=== PATIENT | male | born 1965 | race Caucasian/White ===

== ENCOUNTER 2019-08-31 01:10 | Emergency (ER) | payer BC, SELFPAY ==
[2019-08-31 01:09] VITALS: BP 139/103; PULSE 82; RESP 16; TEMP 36.7; O2SAT 96
--- NOTE | 2019-08-31 01:22 | ED.ABDPAIN ---
HPI - Abdominal Pain General Chief Complaint: Skin/Abscess/Foreign Body Stated Complaint: food bolus Time Seen by Provider: 08/31/19 01:17 History of Present Illness HPI narrative: History limited due to intoxication. He reports the he was eating beef earlier this evening when he felt it get stuck in his throat. He has not been able to eat or drink anything since. He does admit to drinking several alcoholic beverages prior to this. He has had this happen in the past. He is not sure how that was resolved. Related Data Allergies Allergy/AdvReac Type Severity Reaction Status Date / Time No Known Allergies Allergy Verified 08/31/19 01:43 Review of Systems Review of Systems: All systems reviewed & are unremarkable except as noted in HPI and below Constitutional: Constitutional: Denies fever(s) ENT: Reports dysphagia Respiratory: Respiratory: Reports dyspnea Gastrointestinal: Gastrointestinal: Denies abdominal pain, Denies nausea and Denies vomiting Exam Const: General: no acute distress and alert Orientation/consciousness: patient oriented x3 HENMT: Head: normal to inspection Neck: Neck: normal visual inspection and no lymphadenopathy Chest: Chest palpation & inspection: no tenderness Resp: Effort & Inspection: normal respiratory effort Auscultation: clear to auscultation bilaterally, no rales, no rhonchi and no wheezes Cardio: Jugular venous distension: no JVD Rate: regular rate Rhythm: regular rhythm Heart sounds: no murmurs GI: Inspection: non-distended GI Palp: Yes Soft to palpation and No Tenderness to palpation present (GI) Skin: General skin exam: normal color Neuro: General: patient oriented x3 and moves all extremities Speech: Abnormal speech present slurred Extrem: General: no edema Psych: Appearance: well kempt Affect: normal affect Course Course Emergency Course: I discussed the case with Dr. Shankar and planned to admit him for observation and endoscopy in the morning. Shortly afterwards the patient said that he felt it pass. He was then able to keep down fluids without difficulty and asked to be discharged. Vital Signs Vital signs: Vital Signs Temperature 36.7 C 08/31/19 01:09 Pulse Rate 82 08/31/19 01:09 Respiratory Rate 16 08/31/19 01:09 Blood Pressure 139/103 H 08/31/19 01:09 Pulse Oximetry 96 08/31/19 01:09 Temperature 36.4 C L 07/19/20 03:26 Pulse Rate 64 08/31/19 03:26 Respiratory Rate 16 08/31/19 03:26 Blood Pressure 154/96 H 08/31/19 03:26 Pulse Oximetry 97 08/31/19 03:26 MDM - Abdominal Pain Lab Data Result diagrams: 08/31/19 01:50 08/31/19 01:50 Labs: Lab Results 08/31/19 08/31/19 Range/Units 01:50 01:50 WBC 11.8 H (4.5-10.0) K/mm3 RBC 4.62 (4.6-6.20) M/mm3 Hgb 15.2 (14.0-18.0) g/dL Hct 43.7 (42.0-52.0) % MCV 94.6 (80-100) fl MCH 32.9 (26-34) pg MCHC 34.8 (32-36) g/dl RDW 11.9 (11.5-14.5) % Plt Count 258 (150-375) k/mm3 MPV 8.8 (7.4-10.4) fl Immature Gran % (Auto) 0.2 (0-0.5) % Neut % (Auto) 57.8 (45.5-73.1) % Lymph % (Auto) 32.6 (18.3-44.2) % [place] % (Auto) 5.1 (2.6-8.5) % Eos % (Auto) 3.8 (0-4.4) % Baso % (Auto) 0.5 (0.2-1.2) % Lymph # (Auto) 3.84 H (0.9-3.2) K/mm3 [place] # (Auto) 0.6 (0.1-0.6) K/mm3 Eos # (Auto) 0.5 H (0-0.3) K/mm3 Baso # (Auto) 0.1 (0.0-0.1) K/mm3 Abs Immat Gran (auto) 0.02 (0.00-0.031) K/mm3 Absolute Neuts (auto) 6.8 H (1.3-6.7) K/mm3 Absolute Nucleated RBC 0.0 (0.0-0.012) K/mm3 Nucleated RBC % 0.0 (0.0-0.2) % Sodium 134 L (137-145) mmol/L Potassium 4.0 (3.4-5.0) mmol/L Chloride 100 (98-107) mmol/L Carbon Dioxide 22 (22-30) mmol/L BUN 8 L (9-20) mg/dL Creatinine 0.60 L (0.7-1.3) mg/dL Estim Creat Clear Calc 137 ml/min Estimated GFR > 60 (59 - ) Glucose 108 (75-110) mg/dL Calcium 9.2 (8.4-10.2) mg/dL Total Bilirubin 0.2 (0.2-1.3) mg/d
[2019-08-31] MEDS: GLUCAGON FOR INJ 1 MG VIAL IM (01:43)
[2019-08-31] MEDS: SODIUM CHLORIDE 0.9% IV 1,000 ML 999 ML IV CONT (01:43)
[2019-08-31 01:55] LABS: Basophils Absolute Auto 0.1 K/mm3 (0.0-0.1); Basophils Percent Auto 0.5 % (0.2-1.2); Eosinophils Absolute Auto 0.5 K/mm3 (0-0.3); Eosinophils Percent Auto 3.8 % (0-4.4); Hematocrit 43.7 % (42.0-52.0); Hemoglobin 15.2 g/dL (14.0-18.0); Immature Granulocyte Absolute 0.02 K/mm3 (0.00-0.031); Immature Granulocyte Percent A 0.2 % (0-0.5); Lymphocytes Absolute Auto 3.84 K/mm3 (0.9-3.2); Lymphocytes Percent Auto 32.6 % (18.3-44.2); Mean Corpuscular HGB Conc 34.8 g/dl (32-36); Mean Corpuscular Hemoglobin 32.9 pg (26-34); Mean Corpuscular Volume 94.6 fl (80-100); Mean Platelet Volume 8.8 fl (7.4-10.4); Monocytes Absolute Auto 0.6 K/mm3 (0.1-0.6); Monocytes Percent Auto 5.1 % (2.6-8.5); Neutrophils Absolute Auto 6.8 K/mm3 (1.3-6.7); Neutrophils Percent Auto 57.8 % (45.5-73.1); Platelet Count Result 258 k/mm3 (150-375); Red Blood Count 4.62 M/mm3 (4.6-6.20); Red Cell Distribution Width 11.9 % (11.5-14.5); White Blood Count 11.8 K/mm3 (4.5-10.0)
[2019-08-31 02:11] LABS: Alanine Aminotransferase 18 U/L (4-50); Albumin Level 4.3 g/dL (3.5-5.1); Alkaline Phosphatase 85 U/L (38-126); Aspartate Amino Transferase 26 U/L (17-59); Bilirubin,Total 0.2 mg/dL (0.2-1.3); Blood Urea Nitrogen 8 mg/dL (9-20); Calcium 9.2 mg/dL (8.4-10.2); Carbon Dioxide 22 mmol/L (22-30); Chloride 100 mmol/L (98-107); Estimated CRCL calculation 137 ml/min; Estimated Glomerular Filt Rate > 60; Glucose 108 mg/dL (75-110); Lipase 168 U/L (23-300); Sodium 134 mmol/L (137-145)
[2019-08-31 03:26] VITALS: BP 154/96; PULSE 64; RESP 16; TEMP 36.4; O2SAT 97
== END 2019-08-31 03:27 | disposition home or self-care (01) ==
PROVIDERS: Emergency Provider Emergency Medicine
DX: T18.128A Food in esophagus causing other injury, initial encounter (principal)
CPT/HCPCS: 36415; 80053; 83690; 85025; 96360; 96372; 99283; J1610; J7030

== ENCOUNTER 2019-10-16 18:11 | Emergency (ER) | payer BC, SELFPAY ==
--- NOTE | 2019-10-16 18:13 | ED.BACK ---
HPI - Back Pain/Injury General Chief Complaint: Back Pain/Injury Stated Complaint: back pain Time Seen by Provider: 10/16/19 19:01 Source: patient and RN notes reviewed Mode of arrival: ambulatory Limitations: no limitations History of Present Illness HPI Narrative: 54 old male presents with concern for flareup of chronic back pain. Reports bilateral paraspinal spasms with sciatica down the right leg. Reports he has been taking ibuprofen, Tylenol cyclobenzaprine with relief, however has run out. He reports he does not currently have a primary care provider. Reports he had to miss work today. He denies loss of bowel or bladder function, denies perianal anesthesia, denies weakness, fever, abdominal pain. MD elicited complaint: back pain Related Data Home Medications Medication Instructions Recorded Confirmed acetaminophen [Tylenol Extra 1,000 mg PO QID 10/16/19 10/16/19 Strength] cyclobenzaprine 10 mg PO HS 10/16/19 10/16/19 ibuprofen 800 mg PO TID 10/16/19 10/16/19 Allergies Allergy/AdvReac Type Severity Reaction Status Date / Time No Known Allergies Allergy Verified 10/16/19 18:40 Review of Systems Review of Systems: Narrative: CONSTITUTIONAL: Denies malaise, chills, sweats, or fever. CARDIOVASCULAR: Denies chest pain, palpitations, or edema. RESPIRATORY: Denies cough or dyspnea. GASTROINTESTINAL: Denies abdominal pain, nausea, vomiting, diarrhea, bloody, or mucous stools. GENITOURINARY: Denies dysuria or hematuria. SKIN: Denies rash or itching. MUSCULOSKELETAL: Reports bilateral paraspinal spasm, sciatica. Joint pain, or myalgia. NEUROLOGIC: Denies numbness, weakness, or headache. PSYCHIATRIC: Denies anxiety or depression. All systems reviewed & are unremarkable except as noted in HPI and below PMFSH Social History Social History Gender identity (if verbalized by the patient): Male Comments At time of signature, agree with nursing past medical, surgical, social and family history. There is no relevant family history pertinent to the presenting complaint Exam Narrative: Exam Narrative: GENERAL: Well-appearing, well-nourished, and in no acute distress. HEAD: Normocephalic, atraumatic. EYES: PERRLA and EOMI. NECK: Supple. No lymphadenopathy. CHEST: Clear to auscultation. No respiratory distress. HEART: Regular rate and rhythm. Distal pulses palpable and equal, cap refill <3 seconds ABDOMEN: Soft, nontender, nondistended, normal active bowel sounds, no palpable or pulsatile masses. No CVA tenderness MUSCULOSKELETAL: Normal range of motion and strength in all extremities; 5/5 strength with hip flexion and extension, dorsiflexion and extension, knee flexion and extension, plantar flexion and extension. Normal sensation in dermatomal distributions with sensitivity to light touch and pain. No midline back tenderness to palpation. No paraspinal tenderness. Transfers from lying to sitting to standing. SKIN: Warm, dry, no rash. No ecchymosis, erythema, open wounds to back. NEURO: No focal deficits. Alert and oriented x3. Reflexes intact. Normal gait. PSYCH: Normal mood and affect Course Course Emergency Course: Patient is aware of diagnosis, understands and agrees to treatment plan. Anticipatory guidance given. Patient agrees to follow-up as directed and is aware of reasons to seek care at the emergency department. Portions of this record may have been created with voice recognition software Vital Signs Vital signs: Vital Signs Temperature 99.0 F 10/16/19 18:22 Pulse Rate 110 H 10/16/19 18:22 Respiratory Rate 16 10/16/19 18:22 Blood Pressure 121/87 10/16/19 18:22 Pulse Oximetry 98 10/16/19 18:22 Temperature 99.0 F 10/16/19 18:22 Pulse Rate 110 H 10/16/19 18:22 Respiratory Rate 16 10/16/19 18:22 Blood Pressure 121/87 10/16/19 18:22 Pulse Oximetry 98 10/16/19 18:22 Reviewed. MDM - Back Pain/Injury MDM Narrative Medi
[2019-10-16 18:22] VITALS: BP 121/87; PULSE 110; RESP 16; TEMP 37.2; O2SAT 98
== END 2019-10-16 19:14 | disposition home or self-care (01) ==
PROVIDERS: Emergency Provider Nurse Practitioner
DX: M54.5 Low back pain (principal)
CPT/HCPCS: 99213; G0463

== ENCOUNTER 2021-08-29 18:33 | Emergency (ER) | payer OTHER, SELFPAY ==
--- NOTE | ~2021-08-29 | XR_ITS ---
EXAM: XR soft tissue neck DATE: 08/29/2021 19:12 HISTORY: FOOD BOLUS . COMPARISON: None available. FINDINGS: Degenerative change in the cervical spine. Carotid vascular calcifications. No definite ra diopaque foreign body. Prevertebral soft tissues normal. No subcutaneous emphysema. . IMPRESSION: Normal neck soft tissue radiograph findings. Reviewed, dictated and finalized at location K.
--- NOTE | ~2021-08-29 | XR_ITS ---
EXAMINATION: XR chest 2V Exam Date/Time: 08/29/2021 19:02 CDT HISTORY: food bolus, SMOKER Comparison: None available. RESULT: Lines, tubes, and devices: None. Lungs and pleura: Clear. Cardiomediastinal silhouette: Unremarkable. Other: No acute osseous or upper abdominal finding. IMPRESSION: No acute cardiopulmonary process. Reviewed, dictated and finalized at location K.
[2021-08-29 18:42] VITALS: BP 129/80; PULSE 71; RESP 18; TEMP 36.4; O2SAT 100
[2021-08-29 19:44] LABS: Basophils Absolute Auto 0.1 K/mm3 (0.0-0.1); Basophils Percent Auto 0.6 % (0.2-1.2); Eosinophils Absolute Auto 0.1 K/mm3 (0-0.3); Eosinophils Percent Auto 1.1 % (0-4.4); Hematocrit 43.3 % (42.0-52.0); Hemoglobin 14.5 g/dL (14.0-18.0); Immature Granulocyte Absolute 0.05 K/mm3 (0.00-0.031); Immature Granulocyte Percent A 0.4 % (0-0.5); Lymphocytes Absolute Auto 2.01 K/mm3 (0.9-3.2); Lymphocytes Percent Auto 16.4 % (18.3-44.2); Mean Corpuscular HGB Conc 33.5 g/dl (32-36); Mean Corpuscular Hemoglobin 32.4 pg (26-34); Mean Corpuscular Volume 96.7 fl (80-100); Mean Platelet Volume 9.2 fl (7.4-10.4); Monocytes Absolute Auto 0.7 K/mm3 (0.1-0.6); Monocytes Percent Auto 5.9 % (2.6-8.5); Neutrophils Absolute Auto 9.3 K/mm3 (1.3-6.7); Neutrophils Percent Auto 75.6 % (45.5-73.1); Platelet Count Result 260 k/mm3 (150-375); Red Blood Count 4.48 M/mm3 (4.6-6.20); Red Cell Distribution Width 12.5 % (11.5-14.5); White Blood Count 12.3 K/mm3 (4.5-10.0)
--- NOTE | 2021-08-29 19:46 | PC.NURSE ---
pt irritable d/t wait time, explained dept is full. made aware he is next to go to room. remains irritable. pt stated, Adios and left the dept
[2021-08-29 19:54] LABS: Alanine Aminotransferase 23 U/L (6-50); Albumin Level 4.6 g/dL (3.5-5.1); Alkaline Phosphatase 85 U/L (38-126); Anion Gap 11 mmol/L (8-16); Aspartate Amino Transferase 31 U/L (17-59); Bilirubin,Total 0.4 mg/dL (0.2-1.3); Blood Urea Nitrogen 7 mg/dL (9-20); Calcium 9.1 mg/dL (8.4-10.2); Carbon Dioxide 27 mmol/L (22-30); Chloride 97 mmol/L (98-107); Estimated CRCL calculation 116 ml/min; Estimated Glomerular Filt Rate > 60; Glucose 91 mg/dL (65-110); Potassium 3.9 mmol/L (3.4-5.0); Sodium 135 mmol/L (137-145)
== END 2021-08-29 19:46 | disposition left against medical advice (07) ==
LOC: ANHED 19:57
PROVIDERS: Emergency Provider Emergency Medicine; PCP Emergency Medicine
DX: T18.128A Food in esophagus causing other injury, initial encounter (principal)
CPT/HCPCS: 36415; 70360; 71046; 80053; 85025; 99199

== ENCOUNTER 2021-08-29 23:36 | Observation (INO) | payer OTHER, SELFPAY ==
--- NOTE | 2021-08-29 23:45 | PC.NURSE ---
Pt angry when approaching intake desk to check in. States I dont need a room, I dont need to be seen, I need a doctor now. 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 They said I would not have to be triaged again. I am not going to wait for hours again. I need to seen now.
[2021-08-30] VITALS (10 sets, daily range): BP systolic 139–182; BP diastolic 77–111; PULSE 56–87; RESP 12–20; TEMP 35.9–36.8; O2SAT 97–100; BMI 22.5
--- NOTE | 2021-08-30 | PC.NURSE ---
Pt to intake desk and raising voice, states I want to know why you took back someone else before me when I have been here longer. I waited four hours last time and I am not doing that again. This is ridiculous. You are not going to sit there and tell me you cant give me a time. It doesnt work like that, you better tell me something. This RN then discussed pt declined triage due to already having that done. Pt states That is correct. You are not going to do it again, I have already been checked and I need to see a doctor.
[2021-08-30] MEDS: NITROGLYCERIN SL 0.4 MG TABLET SUBLINGUAL (00:45)
[2021-08-30] MEDS: GLUCAGON FOR INJ 1 MG VIAL IV PUSH (00:46)
--- NOTE | 2021-08-30 01:43 | ED.GENADULT ---
HPI - General Adult General Chief complaint: Unspecified Stated complaint: food bolus Time Seen by Provider: 08/30/21 00:17 Related Data Home Medications Medication Instructions Recorded Confirmed aspirin 81 mg tablet,delayed 81 mg PO DAILY 03/09/20 release (Adult Low Dose Aspirin) naproxen sodium 220 mg tablet 220 mg PO BID PRN 03/09/20 (Aleve) Allergies Allergy/AdvReac Type Severity Reaction Status Date / Time No Known Allergies Allergy Verified 08/30/21 00:29 [facility] Past Medical History Medical History Alcohol abuse Tobacco abuse Surgical History Surgical History History of hernia repair (~2004) Family History Family History Father , 66 Cerebrovascular accident Mother , 84 Aortic aneurysm Social History Social History Social History: Patient drinks caffeine daily. 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[employer] Gender identity (if verbalized by the patient): Male Course Vital Signs Vital signs: Vital Signs Temperature 36.8 C 08/30/21 00:21 Pulse Rate 83 08/30/21 00:21 Respiratory Rate 16 08/30/21 00:21 Blood Pressure 182/111 H 08/30/21 00:21 Pulse Oximetry 97 08/30/21 00:21 Oxygen Delivery Room Air 08/30/21 00:21 Temperature 36.8 C 08/30/21 00:21 Pulse Rate 83 08/30/21 00:21 Respiratory Rate 16 08/30/21 00:21 Blood Pressure 182/111 H 08/30/21 00:21 Pulse Oximetry 97 08/30/21 00:21 Oxygen Delivery Room Air 08/30/21 00:21 Medical Decision Making Vital Signs Vital Signs: Vital Signs Temperature 36.8 C 08/30/21 00:21 Pulse Rate 83 07/19/22 00:21 Respiratory Rate 16 08/30/21 00:21 Blood Pressure 182/111 H 08/30/21 00:21 Pulse Oximetry 97 08/30/21 00:21 Oxygen Delivery Room Air 08/30/21 00:21 Temperature 36.8 C 08/30/21 00:21 Pulse Rate 83 08/30/21 00:21 Respiratory Rate 16 08/30/21 00:21 Blood Pressure 182/111 H 08/30/21 00:21 Pulse Oximetry 97 08/30/21 00:21 Oxygen Delivery Room Air 08/30/21 00:21 Discharge Plan Discharge Clinical Impression: Esophageal obstruction due to food impaction Patient Disposition: Still a Patient Condition: Stable Prescriptions: No Action aspirin [Adult Low Dose Aspirin] 81 mg tablet,delayed release (DR/EC) 81 mg PO DAILY naproxen sodium [Aleve] 220 mg tablet 220 mg PO BID PRN sertraline [Zoloft] 50 mg tablet 50 mg PO DAILY Qty: 30 3RF Follow-up/Referrals: Galo Gonzalez MD [Primary Care Provider] - Time of Disposition: 01:50
--- NOTE | 2021-08-30 01:55 | PM.IMHP ---
H&P: HPI History of Present Illness Date/Time: 08/30/21 01:55 Chief Complaint: dysphagia Narrative: This is a 56-year-old male with past medical history significant for tobacco dependence, alcohol dependence, GERD. Patient presents to the emergency room after he had difficulty swallowing after eating chicken wings for the last 4 hours or so tried at home however unsuccessful presented to the emergency room where he received various treatments with no success. patient is able to handle his secretions and in no respiratory distress no shortness of breath, no cough, no sputum production, no dizziness, no lightheadedness, has some pain in the neck area and throat area feels sore, feels like something is stuck in his throat. Patient had been in his usual state of health up until this moment. Will be admitted for further evaluation management and treatment. Review of Systems Review of Systems: Dysphagia. Constitutional: Constitutional: Denies chills, Denies fever(s) and Denies malaise Eyes: Eyes: Denies change in vision ENT: Reports dysphagia, Denies vertigo, Denies dizziness and Denies odynophagia Cardiovascular: Cardiovascular: Denies irregular heart rhythm, Denies lightheadedness, Denies palpitations, Denies dyspnea on exertion and Denies paroxysmal nocturnal dyspnea Respiratory: Respiratory: Denies cough, Denies pain on inspiration and Denies dyspnea Gastrointestinal: Gastrointestinal: Denies abdominal pain, Denies dyspepsia, Reports heartburn, Denies diarrhea, Denies nausea and Denies vomiting Genitourinary: Genitourinary: Denies dysuria Musculoskeletal: Musculoskeletal: Reports back pain Integumentary/Breasts: Skin/Breast: Denies rash Neurologic: Denies vertigo, Denies dizziness, Denies focal weakness and Denies Sensory deficit (Neuro) Psychiatric: Psychiatric: Reports no additional psychiatric complaints and Reports as per HPI Endocrine: Endocrine: Denies cold intolerance, Denies flushing, Denies heat intolerance, Denies polyphagia, Denies polydipsia and Denies palpitations Hematologic/Lymphatic: Hematologic/Lymphatic: Reports no additional hematologic/lymphatic complaints and Reports as per HPI Allergic/Immunologic: Allergic/Immunologic: Reports no additional allergic/immunologic complaints and Reports as per HPI PMFSH Past Medical History Medical History Alcohol abuse Tobacco abuse Surgical History Surgical History History of hernia repair (~2004) Family History Family History Father , 66 Cerebrovascular accident Mother , 84 Aortic aneurysm Social History Social History Social History: Patient drinks caffeine daily. 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[employer] Gender identity (if verbalized by the patient): Male Meds Home Medications and Allergies Home Medications Medication Instructions Recorded Confirmed Type aspirin 81 mg tablet,delayed 81 mg PO DAILY 03/09/20 History release (Adult Low Dose Aspirin) naproxen sodium 220 mg tablet 220 mg PO BID PRN 03/09/20 History (Aleve) sertraline 50 mg tablet (Zoloft) 50 mg PO DAILY #30 tabs 03/09/20 03/09/20 Rx Allergies Allergy/AdvReac Type Severity Reaction Status Date / Time No Known Allergies Allergy Verified 08/30/21 00:29 Vital Signs Vital Signs - 24 hr 08/30/21 00:21 Temperature 98.2 F Pulse Rate 83 Re
--- NOTE | 2021-08-30 03:09 | ADMGEN ---
This patient, Gm Pittman , was admitted to [facility] Surg Room 319-01. Patient/family oriented to hospital policies and general routines including ID bracelet, bed and alarms, visiting hours, pain management, procedures, bathroom and other care routines, personal items, smoking policy, room service/diet, and visiting hours. Information on how to activate the Rapid Response Team has been discussed. Patient/Family are encouraged to report perceived risks to care and to ask questions if they do not understand what they are told or what they should do.
[2021-08-30] MEDS: SODIUM CHLORIDE 0.9% IV 1,000 ML 125 ML IV CONT ×2 (03:50→10:20)
--- NOTE | 2021-08-30 07:06 | WPDGICN ---
Assessment and Plan Assessment and plan (1) Esophageal obstruction due to food impaction: Code(s): K22.2 - Esophageal obstruction; T18.128A - Food in esophagus causing other injury, initial encounter Status: Acute Assessment and Plan: The patient was eating chicken last night when some that stuck. He is uncomfortable. He feels as though it is stuck in his throat. He has been expectorating saliva throughout the night. This is his 3rd time of presented to emergency room with a food impaction but on the previous 2 times it passed on his own. Consequently he has not had endoscopic investigation or treatment in the past. He will be scheduled for EGD to be done this morning. I Explained him that remove the food bolus is more dangerous than routine endoscopy. It can take quite a while. He will be sedated. There is a risk of perforation or injury to the esophagus from trying to remove impaction which could result a longer hospitalization or even the need for surgery there is no recent weight loss or other symptoms that would suggest malignancy. (2) Alcohol abuse: Code(s): F10.10 - Alcohol abuse, uncomplicated Status: Acute Assessment and Plan: he states he drinks at least 6 drinks per day. He added that he knows that he needs to cut back. (3) Tobacco abuse: Code(s): Z72.0 - Tobacco use Status: Acute Assessment and Plan: He smokes at least 1 pack a day and has done that for most of his life, about 40 years GI Consult Note Consult date/time: 08/30/21 07:06 HPI: Gm De Leon Zain Collins is a 56 year old male Who presented to emergency room during the night because of food impaction. He states that he was eating too fast. He acknowledges is that he does that routinely. This is the 3rd time he has had a food bolus impaction. The last time he had come to the hospital it passed before he needed to be admitted and therefore he did not have endoscopy or any other diagnostic studies. He denies chronic heartburn. It is always happens with meat. He is missing some of his teeth particularly molars. He denies weight loss chronic nausea or vomiting, chronic abdominal pain or change in bowel habits. He has not seen blood in his stools. He has no history of liver disease jaundice or hepatitis but admits that he drinks too much. Review of Systems Review of Systems: All systems reviewed & are unremarkable except as noted in HPI and below PMFSH Past Medical History Medical History Alcohol abuse Tobacco abuse Surgical History Surgical History History of hernia repair (~2004) Family History Family History Father , 66 Cerebrovascular accident Mother , 84 Aortic aneurysm Social History Social History Social History: Patient drinks caffeine daily. 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
--- NOTE | 2021-08-30 07:43 | PM.IMPN ---
Subjective Date/time seen: 08/30/21 07:43 Objective Data Vital Signs Vital Signs: Vital Signs - 24 hr 08/30/21 00:21 08/30/21 02:53 08/30/21 03:34 Temperature 98.2 F 96.6 F L Pulse Rate 83 87 74 Respiratory Rate 16 18 18 Blood Pressure 182/111 H 150/101 H 178/111 H Pulse Oximetry 97 98 100 Oxygen Delivery Room Air 08/30/21 06:00 Temperature 97.1 F L Pulse Rate 75 Respiratory Rate 18 Blood Pressure 161/110 H Pulse Oximetry 99 Oxygen Delivery Intake/Output Intake/Output: Intake & Output 08/27/21 08/28/21 08/29/21 08/30/21 23:59 23:59 23:59 23:59 Intake Total 0 Balance 0 Meds/Results Medications: Active Medications Generic Name Dose Route Start Last Admin Trade Name Freq PRN Reason Stop Dose Admin Sodium Chloride 1,000 mls @ 125 mls/hr 08/30/21 01:50 08/30/21 03:50 Normal Saline Iv IV CONT 125 mls/hr .Q8H BERNARDO Administration Ondansetron HCl 4 mg 08/30/21 01:50 Ondansetron Inj 4 Mg/2 Ml Vial IV PUSH Q4H PRN Nausea
[2021-08-30 08:20] LABS: Basophils Absolute Auto 0.1 K/mm3 (0.0-0.1); Basophils Percent Auto 0.6 % (0.2-1.2); Eosinophils Absolute Auto 0.1 K/mm3 (0-0.3); Eosinophils Percent Auto 1.1 % (0-4.4); Hematocrit 42.9 % (42.0-52.0); Hemoglobin 15.2 g/dL (14.0-18.0); Immature Granulocyte Absolute 0.03 K/mm3 (0.00-0.031); Immature Granulocyte Percent A 0.3 % (0-0.5); Lymphocytes Absolute Auto 1.23 K/mm3 (0.9-3.2); Lymphocytes Percent Auto 13.2 % (18.3-44.2); Mean Corpuscular HGB Conc 35.4 g/dl (32-36); Mean Corpuscular Hemoglobin 33.3 pg (26-34); Mean Corpuscular Volume 93.9 fl (80-100); Mean Platelet Volume 8.9 fl (7.4-10.4); Monocytes Absolute Auto 0.6 K/mm3 (0.1-0.6); Monocytes Percent Auto 6.7 % (2.6-8.5); Neutrophils Absolute Auto 7.3 K/mm3 (1.3-6.7); Neutrophils Percent Auto 78.1 % (45.5-73.1); Platelet Count Result 243 k/mm3 (150-375); Red Blood Count 4.57 M/mm3 (4.6-6.20); Red Cell Distribution Width 12.6 % (11.5-14.5); White Blood Count 9.3 K/mm3 (4.5-10.0)
[2021-08-30 08:34] LABS: Anion Gap 9 mmol/L (8-16); Blood Urea Nitrogen 11 mg/dL (9-20); Calcium 9.4 mg/dL (8.4-10.2); Carbon Dioxide 27 mmol/L (22-30); Chloride 103 mmol/L (98-107); Estimated CRCL calculation 112 ml/min; Estimated Glomerular Filt Rate > 60; Glucose 91 mg/dL (65-110); Potassium 4.2 mmol/L (3.4-5.0); Sodium 139 mmol/L (137-145)
[2021-08-30] MEDS: ONDANSETRON INJ 4 MG/2 ML VIAL IV PUSH (08:47)
[2021-08-30] MEDS: hydrALAZINE HCL 20 MG/ML VIAL 5 MG IV PUSH (08:47)
--- NOTE | 2021-08-30 10:45 | PC.NURSE ---
report given to gi nurse Opal
--- NOTE | 2021-08-30 12:00 | PC.NURSE ---
pt at gi lab for edg
[2021-08-30] MEDS: LACTATED RINGERS 1,000 ML 150 ML IV CONT (12:02)
--- NOTE | 2021-08-30 12:19 | WPDANESEPPF ---
Anes - Initial Pre Proc Eval Procedure: Operation Date: 08/30/21 12:30 Proposed Procedures p Esophagogastroduodenoscopy - Raymundo Covarrubias MD Date/Time: 08/30/21 12:19 Surgeon: Adri Irby MD Pre Op Diagnosis: Esophaeal food impaction Patient Data Age: 56 Gender: M Height: 1.85 m Weight: 77.4 kg Last Vital Signs Temp 98.3 F 08/30/21 11:58 Pulse 68 08/30/21 11:58 Resp 18 08/30/21 11:58 BP 149/83 H 08/30/21 11:58 Pulse Ox 100 08/30/21 11:58 O2 Del Method Room Air 08/30/21 11:58 Allergies Allergy/AdvReac Type Severity Reaction Status Date / Time No Known Allergies Allergy Verified 08/30/21 11:56 Home Medications Medication Instructions Recorded Confirmed Type No Home Medications 08/30/21 08/30/21 History Laboratory Tests 08/30/21 08/30/21 08:09 08:09 WBC 9.3 K/mm3 K/mm3 (4.5-10.0) RBC 4.57 M/mm3 L M/mm3 (4.6-6.20) Hgb 15.2 g/dL g/dL (14.0-18.0) Hct 42.9 % % (42.0-52.0) MCV 93.9 fl fl (80-100) MCH 33.3 pg pg (26-34) MCHC 35.4 g/dl g/dl (32-36) RDW 12.6 % % (11.5-14.5) Plt Count 243 k/mm3 k/mm3 (150-375) MPV 8.9 fl fl (7.4-10.4) Immature Gran % (Auto) 0.3 % % (0-0.5) Neut % (Auto) 78.1 % H % (45.5-73.1) Lymph % (Auto) 13.2 % L % (18.3-44.2) [place] % (Auto) 6.7 % % (2.6-8.5) Eos % (Auto) 1.1 % % (0-4.4) Baso % (Auto) 0.6 % % (0.2-1.2) Lymph # (Auto) 1.23 K/mm3 K/mm3 (0.9-3.2) [place] # (Auto) 0.6 K/mm3 K/mm3 (0.1-0.6) Eos # (Auto) 0.1 K/mm3 K/mm3 (0-0.3) Baso # (Auto) 0.1 K/mm3 K/mm3 (0.0-0.1) Abs Immat Gran (auto) 0.03 K/mm3 K/mm3 (0.00-0.031) Absolute Neuts (auto) 7.3 K/mm3 H K/mm3 (1.3-6.7) Absolute Nucleated RBC 0.0 K/mm3 K/mm3 (0.0-0.012) Nucleated RBC % 0.0 % % (0.0-0.2) Sodium 139 mmol/L mmol/L (137-145) Potassium 4.2 mmol/L mmol/L (3.4-5.0) Chloride 103 mmol/L mmol/L (98-107) Carbon Dioxide 27 mmol/L mmol/L (22-30) Anion Gap 9 mmol/L mmol/L (8-16) BUN 11 mg/dL mg/dL (9-20) Creatinine 0.70 mg/dL mg/dL (0.7-1.3) Estim Creat Clear Calc 112 ml/min ml/min Estimated GFR > 60 (59 - ) Glucose 91 mg/dL mg/dL (65-110) Calcium 9.4 mg/dL mg/dL (8.4-10.2) Patient hx anesthesia problems: none Family hx anesthesia problems: none Results Review: All pre-operative results and documents have been reviewed as part of the pre-operative evaluation. [facility] Past Medical History Medical History Alcohol abuse Tobacco abuse Surgical History Surgical History History of hernia repair (~2004) Family History Family History Father , 66 Cerebrovascular accident Mother , 84 Aortic aneurysm Social History Social History Social History: Patient drinks caffeine daily. 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
[2021-08-30] MEDS: BENZOCAINE (*SP) 60 ML SPRAY CAN (HURRICAINE) 1 SPRAY MUCOUS MEM (12:28)
--- NOTE | 2021-08-30 13:04 | PC.NURSE ---
gi lab called and gave report on pt.
--- NOTE | 2021-08-30 13:21 | PC.NURSE ---
pt back in room
--- NOTE | 2021-08-30 13:50 | PC.NURSE ---
MD Covarrubias called, pt ok to discharge if pt can tolerate full liquid diet, meal tray ordered, MD Cruz informed.
--- NOTE | 2021-08-30 14:29 | PM.DS ---
DS: Admitting Diagnosis Discharge Date 08/30/21 Admitting Diagnosis Esophageal obstruction DS: Discharge Diagnosis Discharge Diagnosis (1) Esophageal obstruction due to food impaction: Code(s): K22.2 - Esophageal obstruction; T18.128A - Food in esophagus causing other injury, initial encounter Status: Acute Assessment and Plan: Patient underwent EGD and removal of impacted food. EGD found mild localized gastritis, reflux esophagitis Grade IV and a severe benign appearing stenosis at the GE junction. (2) Alcohol abuse: Code(s): F10.10 - Alcohol abuse, uncomplicated Status: Acute Assessment and Plan: CIWA as needed (3) Tobacco abuse: Code(s): Z72.0 - Tobacco use Status: Acute Assessment and Plan: nicotine patch as needed (4) Chronic back pain: Qualifiers: Back pain location: low back pain Back pain laterality: right Sciatica presence: with sciatica Sciatica laterality: sciatica of right side Qualified Code(s): M54.41 - Lumbago with sciatica, right side; G89.29 - Other chronic pain Code(s): M54.9 - Dorsalgia, unspecified; G89.29 - Other chronic pain Status: Acute Assessment and Plan: Tylenol as needed (5) Elevated blood pressure reading: Code(s): R03.0 - Elevated blood-pressure reading, without diagnosis of hypertension Status: Acute Assessment and Plan: Patient hypertensive, which could be due to the pain he was having from the impacted food but given the history of ETOH abuse he could have hypertension. BP improved after procedure. Patient will need to follow up outpatient to have his blood pressure checked by his primary care physician. DS: Summary Hospital Course Reason for hospitalization: Esophageal Obstruction Hospital Course: 56M iwth a past medical history significant for tobacco dependence, alcohol dependence and gastroesophageal reflux who presented to the emergency room for difficulty swallowing after eating chicken wings. Patient was able to protect his airway and had no difficulty breathing. He did report having pain but was not in respiratory distress. Gastroenterology was consulted. Patient underwent EGD and had the chicken removed. The EGD showed mild localized gastritis, reflux esophagitis Grade IV and a severe benign appearing stenosis at the GE junction. Pathology from biopsy was pending at the time of discharge. Patient was able to tolerate a diet. Patient was discharged to home. Time Spent with Patient Time attestation: Total time spent providing and/or coordinating discharge services: Exam Narrative: GENERAL: NAD, cooperative HEENT: Normocephalic, atraumatic, anicteric NECK: Supple CV: Normal S1, S2, RRR, No MRG RESP: CTAB, Normal work of breathing. Speaking in full sentences with no difficulty. EXTREMITIES: Warm and well perfused, no clubbing, cyanosis, or edema. SKIN: warm, dry and intact. NEURO: CN 2-12 grossly intact. DS: Data Data Completed and Pending Pending studies at discharge: Pending at discharge 08/30/21 12:38 Surgical [PTH] Routine Labs on day of discharge: Labs from last 24 hours 08/30/21 08/30/21 08:09 08:09 WBC 9.3 RBC 4.57 L Hgb 15.2 Hct 42.9 MCV 93.9 MCH 33.3 MCHC 35.4 RDW 12.6 Plt Count 243 MPV 8.9 Immature Gran % (Auto) 0.3 Neut % (Auto) 78.1 H Lymph % (Auto) 13.2 L [place] % (Auto) 6.7 Eos % (Auto) 1.1 Baso % (Auto) 0.6 Lymph # (Auto) 1.23 [place] # (Auto) 0.6 Eos # (Auto) 0.1 Baso # (Auto) 0.1 Abs Immat Gran (auto) 0.03 Absolute Neuts (auto) 7.3 H Absolute Nucleated RBC 0.0 Nucleated RBC % 0.0 Sodium 139 Potassium 4.2 Chloride 103 Carbon Dioxide 27 Anion Gap 9 BUN 11 Creatinine 0.70 Estim Creat Clear Calc 112 Estimated GFR > 60 Glucose 91 Calcium 9.4 Procedures/Treatments: EGD Findings 1. Some meat bolus was seen in the distal esopha
--- NOTE | 2021-08-30 15:11 | PC.NURSE ---
Pt discharging, iV removed, discharge paperwork explained.
== END 2021-08-30 15:15 | disposition home or self-care (01) ==
LOC: ANHED 08-30 01:50 → ANH3MEDSUR 08-30 02:38
PROVIDERS: Internal Medicine Gastroenterology; Admitting Provider Internal Medicine; Emergency Provider Emergency Medicine; PCP Emergency Medicine; Visit Provider Family Medicine
PROC: 0DJ08ZZ Inspection of Upper Intestinal Tract, Via Natural or Artificial Opening Endoscopic (ICD-10-PCS; CPT 43235; principal; 2021-08-30 12:30)
DX: T18.128A Food in esophagus causing other injury, initial encounter (principal); K22.2 Esophageal obstruction; K21.00 Gastro-esophageal reflux disease with esophagitis, without bleeding; K29.70 Gastritis, unspecified, without bleeding; R03.0 Elevated blood-pressure reading, without diagnosis of hypertension; F17.210 Nicotine dependence, cigarettes, uncomplicated; Z79.82 Long term (current) use of aspirin; M54.41 Lumbago with sciatica, right side; G89.29 Other chronic pain; F10.10 Alcohol abuse, uncomplicated
CPT/HCPCS: 43247; 43239; 36415; 80048; 85025; 87081; 88305; 96361; 96374; 96375; 99285; A9270; G0378; J0360; J1610; J2001; J2405; J2704; J7030; J7120

== ENCOUNTER 2022-06-19 11:24 | Outpatient (CLI) | payer OTHER, SELFPAY ==
--- NOTE | ~2022-06-19 | XR_ITS ---
XR lumbar spine 2-3V 06/19/2022 11:48 Indication: Low back pain Procedure: 3 views lumbar spine Comparison: No prior studies for comparison. Findings: Vertebral body heights are maintained. There is disc narrowing at all lumbar levels. There is facet hypertrophy at L4-5 and L5-S1. There is spondylolisthesis. There is dextroscoliosis. There i s atherosclerosis of the aorta. Impression: 1: Moderate-severe lumbar spondylosis. Reviewed, dictated and finalized at location B. Impression: 1: Moderate-severe lumbar spondylosis.
== END 2022-06-19 11:25 | disposition home or self-care (01) ==
LOC: ANHIMG 11:28
PROVIDERS: PCP Emergency Medicine; Visit Provider Emergency Medicine
DX: G89.29 Other chronic pain (principal); M54.41 Lumbago with sciatica, right side; M54.42 Lumbago with sciatica, left side; M47.896 Other spondylosis, lumbar region
CPT/HCPCS: 72100

== ENCOUNTER 2024-04-03 13:50 | Emergency (ER) | payer OTHER, SELFPAY ==
--- NOTE | ~2024-04-03 | XR_ITS ---
EXAMINATION: XR chest 1V portable DATE: 04/03/2024 16:36 INDICATION: Cough. TECHNIQUE: A single frontal view of the chest was obtained. COMPARISON: Chest 2 view 08/29/2021 FINDINGS: There is no pneumonia, pleural effusion, or pneumothorax. The heart size is normal. IMPRESSION: 1. No acute cardiopulmonary disease. Reviewed, dictated and finalized at location A. [facility]
[2024-04-03 13:54] VITALS: BP 129/87; PULSE 86; RESP 17; TEMP 36.7; O2SAT 100
[2024-04-03 14:06] VITALS: PULSE 90
--- OUTSIDE RECORDS SUMMARY | 2024-04-03 14:34 | XMS_ITS | Continuity of Care Document ---
Author Organization [facility] Address [address] [place] [address] Phone Care Team Providers Care Checker Loader Name Role Phone Jacqueline Brewer Unavailable Unavailable Allergies, Adverse Reactions, Alerts Substance Reaction Status Criticality No Known Drug Allergies Other Active No I nformation Medications Medication Instructions Dosage Effective Dates (start - stop) Status Comments SIMVASTATIN 40 MG TABLET 1 QHS - No Longer Active SIMVASTATIN 40MG TABS 1 QHS - No Longer Active TOBRAMYCIN SULFATE 0.3% DROPS 1 QID - No Longer Active TRAZODONE HCL 50MG TABS 1 QHS - No Longer Active Advance Directives Directive Yes / No Effective Date File Name No Information Encounters Encounter Description Practice Location Reason(s) For Visit Diagnoses Date Provider Providers Copied on Encounter [facility], [address], [place], [place], [id number], tel:[phone] [place] No Information Matt Phillips. [address], [place], [place], [id number] . tel: [phone] [facility], [address], [place], [place], [address], [place] tel:[phone] [place] ANXIETY STATE NOS Matt Phillips. [address], [place], [place], [id number] . tel: [phone] [facility], [address], [place], [place], [address], tel:[phone] [facility] ABN LIVER FUNCTION STUDYDEPRESSIVE DISORDER NECMALAISE AND FATIGUE NEC Sandrine Monet. [address], [place], [place], [id number] , [place]. tel: [phone] [facility], [address], [place], [place], [address], tel:[phone] [place] VIRAL ENTERITIS NOSOTH CELLS/CASTS IN URINELONG-TERM USE MEDS NEC Sandrine Monet. [address], [address], [place], [place], [id number] , [place]. tel: [phone] [facility], [address], [place], [place], [address], tel:[phone] [place] VACCINATION FOR DTP-DTAPMIXED HYPERLIPIDEMIA Sandrine Monet. [address], [place], [place], [id number] , . tel: [phone] [facility], [address], [place], [place], [address], tel:[phone] [place] SUPERFICIAL INJ CORNEA Matt Phillips. [address] [facility] [address], [place], [place], [id number] . tel: [phone] [facility], [address], [place], [place], [address], tel:[phone] [place] No Information Matt Phillips. [address] , [address], [place], [place], [id number] . tel: [phone] [facility], [address], [place], [place], [address], [place] tel:[phone] [place] SLEEP DISTURBANCES NEC Sandrine Monet. [address], [place], [place], [address] , [place]. tel: [phone] [facility], [address], [place], [place], [address], tel:[phone] [place] CELLULITIS OF NECK Sandrine Monet. [address], [place], [id number] , . tel: [phone] [facility], [address], [place], [place], [address], tel:[phone] [place] UMBILICAL HERNIASPRAIN LUMBAR REGIONSPRAIN NEC Sandrine Monet. [address] [place] [address], [id number] , . tel: [phone] [facility] [address], [place], [place], [address], tel:[phone] [place] CONTUSION OF FINGERJOINT PAIN-HANDTUBERCUL OSIS CONTACT Sandrine Monet. [address] [place] [address], [place], [place], [id number] , . tel: [phone] [facility], [address], [place], [place], [address], tel:[phone] [place] RESPIRATORY ABNORM NECENLARGEMENT LYMPH NODESCHEST PAIN NOSRHINITIS DUE TO POLLENCHR AIRWAY OBSTRUCT NEC Sandrine Monet. [address] [place] [address], [id number] , . tel: [phone] Family History Family Member Type Diagnosis Age At Onset No Information Immunizations Vaccine Date Status Comments 93879 - Tetanus_Diptheria_Pertussis_Tdap administered Source: Source Unspecified Payers Payer name Insurance type Covered democrat ID Authoriza tion(s) No Information Social History Type Description Quantity Date Captured Comments Sex Male Smoking Status No Information Chief Complaint And Reason For Visit No Information Reason For Referral Reason For Referral No Information History Of Present Illness Encounter Date Complaint History Of Prese nt Illness No Information Functional Status Date Functional Assessmen t No Information Instructions Date Instruction Additional Infor mation No Information Assessments Type Assessment Date No Information Patient Care Teams Name Effective Dates (start - stop) Status Members No Information
--- OUTSIDE RECORDS SUMMARY | 2024-04-03 14:34 | XMS_ITS | Referral Summary ---
Author Organization [facility] Address [address] [place] [address] Care Team Providers Care Field Recruiter Name Role Phone Ralph James MD Primary Care Provider + Encounters Date Type Department Care Team Description 01/21/2024 2:54 PM ELECTRICAL SIGN WIRER - 01/21/2024 11:59 PM ELECTRICAL SIGN WIRER Hospital Encounter [facility] [address] [place] [address] Other intervertebral disc displacement, lumbar region Discharge Disposition: Discharge to home or self care from Last 3 Months Allergies No known active allergies Active Problems Problem Noted Date Diagnosed Date Low back pain 05/15/2014 Overview (05/20/2016): Low back pain Common peroneal neuropathy 05/15/2014 Overview (05/20/2016): Common peroneal neuropathy Thoracic radiculitis 03/05/2014 Overview (05/20/2016): Thoracic radiculitis Neck pain 01/15/2014 Overview (05/20/2016): Neck pain Skin sensation disturbance 01/13/2014 Overview (05/20/2016): Skin sensation disturbance Social History Tobacco Use Types Packs/Day Years Used Date Smoking Tobacco: Every Day Alcohol Use Standard Drinks/Week Comments Yes 0 (1 standard drink = 0.6 oz pur e alcohol) Sex and Gender Information Value Date Recorded Sex Assigned at Not on file Legal Sex Male 7:58 PM ELECTRICAL SIGN WIRER Gender Identity Not on file Sexual Orientation Not on file Last Filed Vital Signs Vital Sign Reading Time Taken Comments Blood Pressure 130/80 05/15/2014 11:28 AM CDT Pulse 72 03/19/2014 10:02 AM ELECTRICAL SIGN WIRER Temperature - - Respiratory Rate - - Oxygen Saturation - - Inhaled Oxygen Concentration - - Weight 99.8 kg (220 lb) 05/15/2014 11:28 AM CDT Height 184.2 cm (6' 0.5 ) 05/15/2014 11:28 AM CD T Body Mass Index 29.43 05/15/2014 11:28 AM CDT Plan of Treatment Not on file Procedures Procedure Name Priority Date/Time Associated Diagnosis Comments MRI LUMBAR SPINE WO CONTRAST Schedule Routine, Read Routine (OP Routine) 01/21/2024 3:47 PM ELECTRICAL SIGN WIRER Other intervertebral disc displacement, lumbar region from Last 3 Months Results * MRI Lumbar Spine WO Contrast (01/21/2024 3:47 PM ELECTRICAL SIGN WIRER) Anatomical Region Laterality Modality Spine N/A Magnetic Resonan ce 01/22/2024 1:50 PM ELECTRICAL SIGN WIRER Narrative 01/22/2024 2:17 PM ELECTRICAL SIGN WIRER EXAM DESCRIPTION: MRI LUMBAR SPINE WO CONTRAST REASON FOR STUDY: INTERVERTEBRAL DISC DISORDER WITH RADICULOPATHY, LUMBAR REGION Intervertebral disc disorder with radiculopathy in lumbar region; pt has been in chronic pain for over 10 years; first encounter; MRI for plan of care. Unspecified injury. Pt severely claustrophobic, best images possible. TECHNIQUE: Sagittal and Axial imaging includes T1, T2, STIR sequences. COMPARISON: Lumbar spine CT 03/11/2014 FINDINGS: Motion compromised evaluation. SEGMENTATION: For the purposes of the study, the lowest well-developed disc space is labeled L5-S1. Given this numbering there is a rudimentary disc space at S1-S2. ALIGNMENT: Mild dextroscoliosis centered at L3-L4. VERTEBRAE: Vertebral body height is maintained. Endplate degenerative changes with bridging marginal osteophytes and robust edema at L3-L4 and L4-L5 involving the pedicles and facet joints most noticeable on the left at L4 and right at L5. Favor reactive degenerative changes without history of recent trauma but CT is more sensitive for fracture and could be considered if clinically indicated. L4 inferior endplate irregularity is most suggestive of a Schmorl's node. DISC HEIGHT: Multilevel moderate to severe disc height loss. HARDWARE: None in the spine. CORD/CAUDA: Normal in size and signal intensity. Conus medullaris terminates at the L2 level. LOWER THORACIC: Incompletely imaged. No stenosis seen. INDIVIDUAL DISC LEVELS: L1-2: No significant disc bulge. No significant spinal canal or neural foraminal stenosis. L2-3: Annular disc bulge with annular fissure mildly narrowing the lateral recesses. Mild facet arthropathy. Mild spinal canal stenosis. [id number] proximal left and mild right neural foraminal stenosis. L3-4: Annular disc bulge and osseous spurring. Facet arthropathy with ligamentum flavum hypertrophy. Severe spinal canal stenosis. Moderate to severe left and moderate right neural foraminal stenosis. L4-5: Annular disc bulge with osseous spurring. Severe facet arthropathy with prominent dorsal epidural fat. Severe spinal canal stenosis. Moderate left and severe right neural foraminal stenosis. L5-S1: Annular disc bulge narrowing the lateral recesses contacting the descending right S1 nerve root. Moderate to severe facet arthropathy, right greater than left. Mild spinal canal stenosis. Moderate left and severe right neural foraminal stenosis. SACRUM: Visualized upper sacrum intact. VISUALIZED UPPER ABDOMEN: Tortuous or mild aneurysmal dilation of the infrarenal abdominal aorta measuring 3 cm on series 8, image 23. 2.4 cm well-defined round T2 hypointense area adjacent to the left common iliac artery on series 9, image 36. Finding could represent aneurysmal dilation of the common iliac artery or lesion adjacent to the vessel. IMPRESSION: Severe lumbar degenerative changes as described. Most advanced at L3-L4 and L4-L5 with spinal canal stenosis and moderate to severe neural foraminal stenosis. Well-defined round T2 hypointense area adjacent to the left common iliac artery measuring 2.4 cm. Finding could represent aneurysmal dilation of the common iliac artery or lesion adjacent to the vessel. Abdomen pelvis CT with contrast could be considered for further evaluation. Tortuous or mild aneurysmal dilation of the infrarenal abdominal aorta measuring 3 cm. Attention on follow-up. THIS IS AN ELECTRONICALLY VERIFIED FINAL REPORT 01/22/2024 2:17 PM - Electronically signed by Keith Lo M.D. AG: RAHEEM Report ID: [id number] Reading Location: [id number] Procedure Note Keith Lo MD - 01/22/2024 EXAM DESCRIPTION: MRI LUMBAR SPINE WO CONTRAST REASON FOR STUDY: INTERVERTEBRAL DISC DISORDER WITH RADICULOPATHY,LUMBAR REGION Intervertebral disc disorder with radiculopathy in lumbar region; pt hasbeen in chronic pain for over 10 years; first encounter; MRI for plan of care. Unspecified injury. Pt severely claustrophobic, best images possible. TECHNIQUE: Sagittal and Axial imaging includes T1, T2, STIR sequences. COMPARISON: Lumbar spine CT 03/11/2014 FINDINGS: Motion compromised evaluation. SEGMENTATION: For the purposes of the study, the lowest well-developeddisc space is labeled L5-S1. Given this numbering there is a rudimentary discspace at S1-S2. ALIGNMENT: Mild dextroscoliosis centered at L3-L4. VERTEBRAE: Vertebral body height is maintained. Endplate degenerative changes with bridging marginal osteophytes and robust edema at L3-L4 andL4-L5 involving the pedicles and facet joints most noticeable on the left at L4and right at L5. Favor reactive degenerative changes without history of recent trauma but CT is more sensitive for fracture and could be considered if clinically indicated. L4 inferior endplate irregularity is mostsuggestive of a Schmorl's node. DISC HEIGHT: Multilevel moderate to severe disc height loss. HARDWARE: None in the spine. CORD/CAUDA: Normal in size and signal intensity. Conus medullaris terminates at the L2 level. LOWER THORACIC: Incompletely imaged. No stenosis seen. INDIVIDUAL DISC LEVELS: L1-2: No significant disc bulge. No significant spinal canal or neural foraminal stenosis. L2-3: Annular disc bulge with annular fissure mildly narrowing thelateral recesses. Mild facet arthropathy. Mild spinal canal stenosis. Cxql-jw-qhcxyhpw proximal left and mild right neural foraminal stenosis. L3-4: Annular disc bulge and osseous spurring. Facet arthropathy with ligamentum flavum hypertrophy. Severe spinal canal stenosis. Moderate to severe left and moderate right neural foraminal stenosis. L4-5: Annular disc bulge with osseous spurring. Severe facetarthropathy with prominent dorsal epidural fat. Severe spinal canal stenosis.Moderate left and severe right neural foraminal stenosis. L5-S1: Annular disc bulge narrowing the lateral recesses contacting the descending right S1 nerve root. Moderate to severe facet arthropathy,right greater than left. Mild spinal canal stenosis. Moderate left and severe right neural foraminal stenosis. SACRUM: Visualized upper sacrum intact. VISUALIZED UPPER ABDOMEN: Tortuous or mild aneurysmal dilation of the infrarenal abdominal aorta measuring 3 cm on series 8, image 23. 2.4 cm well-defined round T2 hypointense area adjacent to the left common iliac artery on series 9, image 36. Finding could represent aneurysmal dilationof the common iliac artery or lesion adjacent to the vessel. IMPRESSION: Severe lumbar degenerative changes as described. Most advanced at L3-L4and L4-L5 with spinal canal stenosis and moderate to severe neural foraminal stenosis. Well-defined round T2 hypointense area adjacent to the left common iliac artery measuring 2.4 cm. Finding could represent aneurysmal dilation ofthe common iliac artery or lesion adjacent to the vessel. Abdomen pelvis CTwith contrast could be considered for further evaluation. Tortuous or mild aneurysmal dilation of the infrarenal abdominal aorta measuring 3 cm. Attention on follow-up. THIS IS AN ELECTRONICALLY VERIFIED FINAL REPORT 01/22/2024 2:17 PM - Electronically signed by Keith Lo M.D. AG: RAHEEM Report ID: [id number] Reading Location: [place] [address] Galo Gonzalez MD IMG MRI PROCEDURES Fi nal Result from Last 3 Months [place] [id number] Care Teams Field Recruiter Relationship Specialty [place] [address] [facility] [address] [place] [address] PCP - General 02/02/12
--- OUTSIDE RECORDS SUMMARY | 2024-04-03 14:34 | XMS_ITS | Clinical Summary ---
Author Organization [facility] Address [address] [place] [address] Care Team Providers Care Automation And Controls Supervisor Name Role Phone Ralph James MD Primary Care Provider + Allergies No known active allergies Active Problems Problem Noted Date Diagnosed Date Low back pain 05/15/2014 Overview (05/20/2016): Low back pain Common peroneal neuropathy 05/15/2014 Overview (05/20/2016): Common peroneal neuropathy Thoracic radiculitis 03/05/2014 Overview (05/20/2016): Thoracic radiculitis Neck pain 01/15/2014 Overview (05/20/2016): Neck pain Skin sensation disturbance 01/13/2014 Overview (05/20/2016): Skin sensation disturbance Encounters Date Type Department Care Team Description 01/21/2024 2:54 PM BIRD TENDER - 01/21/2024 11:59 PM BIRD TENDER Hospital Encounter [facility] [address] [place] [address] Other intervertebral disc displacement, lumbar region Discharge Disposition: Discharge to home or self care from Last 3 Months Surgical History Surgery Date Site/Laterality Comments HERNIA REPAIR 2005 Hernia repair TONSILLECTOMY 1979 Tonsillectomy SHOULDER SURGERY right shoulder surgery OTHER SURGICAL HISTORY hernia repairs OTHER SURGICAL HISTORY Shoulder repair ( R ) Medical History Medical History Date Comments Hx Other Medical 2000 Rt shoulder yeyo roxana Osteoarthritis Osteoarthritis Hx Other Medical not claustrophi c; Comments: AlP 01/14/2014 - Arthritis Arthritis Hx Other Medical lumbar disc bul ge Family History Medical History Relation Name Comments Other Brother MS; Hypertension Father Hypertension; Stroke Father Stroke; Heart disease Maternal Grandfather Heart disease; Lung cancer Maternal Grandmother Cancer, lung; Pancreatic cancer Maternal Grandmother Ca ncer, pancreas; Cancer Other Family history of Cancer; Osteoarthritis Other Family histor y of Osteoarthritis; Stroke Other Family history of Stroke; Relation Name Status Comments Brother Father Maternal Grandfather Maternal Grandmother Other Social History Tobacco Use Types Packs/Day Years Used Date Smoking Tobacco: Every Day Alcohol Use Standard Drinks/Week Comments Yes 0 (1 standard drink = 0.6 oz pur e alcohol) Sex and Gender Information Value Date Recorded Sex Assigned at Not on file Legal Sex Male 7:58 PM BIRD TENDER Gender Identity Not on file Sexual Orientation Not on file Obstetrics History Last Filed Vital Signs Vital Sign Reading Time Taken Comments Blood Pressure 130/80 05/15/2014 11:28 AM CDT Pulse 72 03/19/2014 10:02 AM BIRD TENDER Temperature - - Respiratory Rate - - Oxygen Saturation - - Inhaled Oxygen Concentration - - Weight 99.8 kg (220 lb) 05/15/2014 11:28 AM CDT Height 184.2 cm (6' 0.5 ) 05/15/2014 11:28 AM CD T Body Mass Index 29.43 05/15/2014 11:28 AM CDT Plan of Treatment Health Maintenance Due Date Last Done Comments Colon Cancer Screening-Colonoscopy 1966 Depression Screening 1966 Hepatitis C Screening 1966 Prostate Cancer Screening-PSA 1966 DTaP/Tdap/Td Vaccine (1 - Tdap) 1977 Hepatitis B Screening 01/26/1984 Regular Well Visit/Exam 18-64 01/26/1984 Pneumococcal vaccine <65 (1 of 2 - PCV) 1985 Zoster Vaccine (1 of 2) 01/26/2016 Influenza Vaccine (#1) 2023 Procedures Procedure Name Priority Date/Time Associated Diagnosis Comments MRI LUMBAR SPINE WO CONTRAST Schedule Routine, Read Routine (OP Routine) 01/21/2024 3:47 PM BIRD TENDER Other intervertebral disc displacement, lumbar region from Last 3 Months Results * MRI Lumbar Spine WO Contrast (01/21/2024 3:47 PM BIRD TENDER) Anatomical Region Laterality Modality Spine N/A Magnetic Resonan ce 01/22/2024 1:50 PM BIRD TENDER Narrative 01/22/2024 2:17 PM BIRD TENDER EXAM DESCRIPTION: MRI LUMBAR SPINE WO CONTRAST [...] Mild facet arthropathy. Mild spinal canal stenosis. [id number] proximal left and mild right neural foraminal [...] Keith Lo M.D. AG: RAHEEM Report ID: [id number] Reading Location: [id number] Procedure Note Keith Lo MD - 01/22/2024 [...] Mild facet arthropathy. Mild spinal canal stenosis. [id number] proximal left and mild right neural foraminal [...] Keith Lo M.D. AG: RAHEEM Report ID: [id number] Reading Location: [id number] Galo Gonzalez MD IMG MRI PROCEDURES Fi nal Result from Last 3 Months Insurance [employer] Care Teams Automation And Controls Supervisor Relationship Specialty [place] [id number] [facility] [place] [address] PCP - General 02/02/12
--- OUTSIDE RECORDS SUMMARY | 2024-04-03 14:34 | XMS_ITS | Continuity of Care Document ---
Author Organization [facility] Address [address] [place] [phone] Phone Care Team Providers Care Clinical Rehabilitation Aide Name Role Phone Denny Mckeon MD Unavailable Unavailable Procedures Procedure Date NEW PATNT OV DTL EXAM ARTHROCE LARGE JOINT X-RAY OF SHOULDER (COMPLETE) 2 V MIN. Ap DepoMedrol INJECTION,METHYLPREDNISOLONE ACETATE,80MG Marcaine .5% 5MG (50ML M) Advance Directives Directive Yes / No Effective Date File Name No Information Encounters Encounter Description Practice Location Reason(s) For Visit Diagnoses Date Provider Providers Copied on Encounter [facility], [address] [place] [address], [id number], [place] tel:[phone] [facility] No Information Linda Baldwin. [address] [facility], [facility] [address], [place], [id number], [place]. tel:[phone] NEW PATNT OV DTL EXAM [facility], [address] [place] [address], [id number], [place] tel:[phone] [facility] right shoulder pain (chief complaint) Acute pain of right shoulder Winston Meza. [address] [address], [facility] [address], [place], [id number], [place]. Referring Provider: Francis Marquis, [address] [facility] [address], [place], [address] . tel:[phone] Family History Family Member Type Diagnosis Age At Onset No Information Payers Payer name Insurance type Covered alliance party ID Authoriza tishabbir(s) [employer] BL [id number] Social History Type Description Quantity Date Captured Comments Sex Male Smoking Status No Information Chief Complaint And Reason For Visit No Information Reason For Referral Reason For Referral No Information History Of Present Illness Encounter Date Complaint History Of Prese nt Illness right shoulder pain Functional Status Date Functional Assessmen t No Information Instructions Date Instruction Additional Infor mation No Information Assessments Type Assessment Date No Information Patient Care Teams Name Effective Dates (start - stop) Status Members No Information
--- OUTSIDE RECORDS SUMMARY | 2024-04-03 14:34 | XMS_ITS | Patient Health Record ---
Author Organization [facility] [address] Address [address] [place] [address] Support Name Relationship Address Phone Gm Pittman Guarantor Unknown [phone] Reason For Referral No Information Plan Of Treatment No Information Insurance Providers Payer Name Payer Address Payer Phone Subscriber Number Group Number Insured Name Patient Relationship to Insured Coverage Start Date Coverage End Date [facility] [address] [place], [place] [id number] Gm Pittman Self - patient is the insured
--- NOTE | 2024-04-03 14:42 | ED_ITS ---
HPI - General Adult General Chief complaint: Weakness Stated complaint: weakness, hypotension Time Seen by Provider: 04/03/24 14:11 Source: patient and EMS Mode of arrival: EMS Limitations: no limitations History of Present Illness HPI narrative: 59 years old white male with history of chronic back pain on tramadol went to urgent care today because of sore throat, runny nose, coughing, body aches started 3-4 days ago, referred to the emergency room for general weakness and low blood pressure. Patient was seen by the same urgent care 4 days ago for a boil at the back of his neck and his telling me was draining and he got discharged on antibiotic and and Band-Aid. Patient did not get the prescription done yet. Currently patient main complaint of being here and feeling hungry. Related Data Allergies Allergy/AdvReac Type Severity Reaction Status Date / Time No Known Allergies Allergy Verified 04/03/24 14:08 Review of Systems 2 Review of Systems: All systems reviewed & are unremarkable except as noted in HPI and below PMFSH Past Medical History Medical History Alcohol abuse Tobacco abuse Surgical History Surgical History History of hernia repair (~2004) Family History Family History Father , 66 Cerebrovascular accident Mother , 84 Aortic aneurysm Social History Social History Social History: Patient drinks caffeine daily. Smoking packs per day: 1 Smoking cigarettes per day: 20.0 Years smoked: 40 Smoking pack-years: 40.00 Smoking status: Current every day smoker Tobacco type: cigarettes Second hand tobacco smoke exposure: Yes Alcohol intake: current Drinks per week: 45 Alcohol use details: Patient drinks 6 alcoholic beverages daily Substance use: never Substance use type: does not use Current Housing: Decline to Answer Concerned About Future Housing: Decline to Answer Difficulty Paying Gas/Electric Bills: Decline to Answer Difficulty Paying for Meds: Decline to Answer Currently Unemployed: Decline to Answer Education: Decline to Answer Difficulty w/ Childcare or Family Care: Decline to Answer Living arrangements: with family Occupation/Education: occupation 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[employer] Gender identity (if verbalized by the patient): Male Spiritual care concerns: No Exam 2 Narrative: General appearance: Well-developed, well-nourished Skin: Normal color, 1 x 1 cm cyst at the back of the left side of the neck, not erythematous, slightly tender, no discharge, no fluctuation Head: Normocephalic, nontraumatic Eyes: Clear conjunctiva ENT: Oropharynx normal, ears normal, nose normal Neck: Supple, nontender Chest and respiratory: Airway patent, no respiratory distress, no accessory muscle use Heart: Regular rate/rhythm Abdomen: Soft, nontender, no organomegaly, quiet bowel sounds Vascular: Normal peripheral pulses, normal capillary refill. 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 is normal as tested, no gross motor deficit Course Vital Signs Vital signs: Vital Signs Temperature 36.7 C 04/03/24 13:54 Pulse Rate 86 04/03/24 13:54 Respiratory Rate 17 04/03/24 13:54 Blood Pressure 129/87 04/03/24 13:54 Pulse Oximetry 100 04/03/24 13:54 Oxygen Delivery Room Air 04/03/24 13:54 Temperature 36.7 C 04/03/24 13:54 Pulse Rate 90 04/03/24 14:06 Respiratory Rate 17 04/03/24 13:54 Blood Pressure 129/87 04/03/24 13:54 Pulse Oximetry 100 04/03/24 13:54 Oxygen Delivery Room Air 04/03/24 13:54 Medical Decision Making [facility] Narrative Medical decision making narrative: Patient presents with viral syndrome like symptoms, gastroenteritis, upper respiratory viral infection Viral syndrome is my concern Blood workup today includes CBC, CMP, showed sodium of 132, otherwise within normal limit Chest x-ray showed no acute abnormality Respiratory panel showed positive for influenza A Patient's symptoms started 3-4 days ago, Tamiflu is not indicated at this time. Discharge with viral syndrome secondary to influenza A. Differential Diagnosis Differential Diagnosis: As above Vital Signs Vital Signs: Vital Signs Temperature 36.7 C 04/03/24 13:54 Pulse Rate 86 04/03/24 13:54 Respiratory Rate 17 04/03/24 13:54 Blood Pressure 129/87 04/03/24 13:54 Pulse Oximetry 100 04/03/24 13:54 Oxygen Delivery Room Air 04/03/24 13:54 Temperature 36.7 C 04/03/24 13:54 Pulse Rate 90 04/03/24 14:06 Respiratory Rate 17 04/03/24 13:54 Blood Pressure 129/87 04/03/24 13:54 Pulse Oximetry 100 04/03/24 13:54 Oxygen Delivery Room Air 04/03/24 13:54 Lab Data 04/03/24 16:16 04/03/24 16:16 Labs: Lab Results 04/03/24 Range/Units 16:16 WBC 6.9 (4.5-10.0) K/mm3 RBC 4.62 (4.6-6.20) M/mm3 Hgb 14.9 (14.0-18.0) g/dL Hct 43.5 (42.0-52.0) % MCV 94.2 (80-100) fl MCH 32.3 (26-34) pg MCHC 34.3 (32-36) g/dl RDW 12.6 (11.5-14.5) % Plt Count 162 (150-375) k/mm3 MPV 9.0 (7.4-10.4) fl Immature Gran % (Auto) 0.3 (0-0.5) % Neut % (Auto) 73.8 H (45.5-73.1) % Lymph % (Auto) 14.5 L (18.3-44.2) % Vermilion % (Auto) 10.4 H (2.6-8.5) % Eos % (Auto) 0.4 (0-4.4) % Baso % (Auto) 0.6 (0.2-1.2) % Lymph # (Auto) 1.00 (0.9-3.2) K/mm3 Vermilion # (Auto) 0.7 H (0.1-0.6) K/mm3 Eos # (Auto) 0.0 (0-0.3) K/mm3 Baso # (Auto) 0.0 (0.0-0.1) K/mm3 Abs Immat Gran (auto) 0.02 (0.00-0.031) K/mm3 Absolute Neuts (auto) 5.1 (1.3-6.7) K/mm3 Absolute Nucleated RBC 0.000 (0.0-0.012) K/mm3 Nucleated RBC % 0.0 (0.0-0.2) % Sodium 132 L (137-145) mmol/L Potassium 4.0 (3.4-5.0) mmol/L Chloride 99 (98-107) mmol/L Carbon Dioxide 24 (22-30) mmol/L Anion Gap 9 (4-12) mmol/L BUN 12 (9-20) mg/dL Creatinine 0.77 (0.7-1.3) mg/dL Estim Creat Clear Calc 103 ml/min Estimated GFR > 60 (59 - ) Glucose 66 (65-110) mg/dL Calcium 8.7 (8.4-10.2) mg/dL Total Bilirubin 0.5 (0.2-1.3) mg/dL AST 38 (17-59) U/L ALT 38 (6-50) U/L Alkaline Phosphatase 67 (38-126) U/L Total Protein 7.0 (6.3-8.2) g/dL Albumin 4.0 (3.5-5.1) g/dL Influenza A (RT-PCR) Positive A (Negative) Influenza B (RT-PCR) Negative (Negative) RSV (RT-PCR) Negative (Negative) SARS-CoV-2 RNA (RT-PCR) Negative (Negative) Imaging Data Radiologist's impression: Impressions Chest X-Ray 04/03/24 16:45 IMPRESSION: 1. No acute cardiopulmonary disease. Critical Care Time Critical Care Time Critical Care Time: No Discharge Plan Discharge Clinical Impression: Influenza A, Acute hyponatremia Patient Disposition: Home, Self-Care Condition: Stable Instructions: Hyponatremia (ED), Influenza (DC) Additional Instructions: Return if symptoms are worsening , call your family physician for appointment, take Tylenol, ibuprofen as as needed for aches and pain, continue home medications. Encourage fluid intake Get [id number] medicine for cough and cold symptoms Patient Language: Cape Verdean Prescriptions: No Action tramadol 50 mg tablet 50 mg PO Q6H PRN (Reason: pain) Qty: 20 1RF Follow-up/Referrals: Galo Gonzalez MD [Primary Care Provider] - Stand Alone Forms: Work/School Release IP
[2024-04-03 16:29] LABS: Basophils Percent Auto 0.6 % (0.2-1.2); Eosinophils Percent Auto 0.4 % (0-4.4); Hematocrit 43.5 % (42.0-52.0); Hemoglobin 14.9 g/dL (14.0-18.0); Immature Granulocyte Absolute 0.02 K/mm3 (0.00-0.031); Immature Granulocyte Percent A 0.3 % (0-0.5); Lymphocytes Percent Auto 14.5 % (18.3-44.2); Mean Corpuscular HGB Conc 34.3 g/dl (32-36); Mean Corpuscular Hemoglobin 32.3 pg (26-34); Mean Corpuscular Volume 94.2 fl (80-100); Monocytes Absolute Auto 0.7 K/mm3 (0.1-0.6); Monocytes Percent Auto 10.4 % (2.6-8.5); Neutrophils Absolute Auto 5.1 K/mm3 (1.3-6.7); Neutrophils Percent Auto 73.8 % (45.5-73.1); Platelet Count Result 162 k/mm3 (150-375); Red Blood Count 4.62 M/mm3 (4.6-6.20); Red Cell Distribution Width 12.6 % (11.5-14.5); White Blood Count 6.9 K/mm3 (4.5-10.0)
[2024-04-03 16:40] LABS: Alanine Aminotransferase 38 U/L (6-50); Alkaline Phosphatase 67 U/L (38-126); Anion Gap 9 mmol/L (4-12); Aspartate Amino Transferase 38 U/L (17-59); Bilirubin,Total 0.5 mg/dL (0.2-1.3); Blood Urea Nitrogen 12 mg/dL (9-20); Calcium 8.7 mg/dL (8.4-10.2); Carbon Dioxide 24 mmol/L (22-30); Chloride 99 mmol/L (98-107); Estimated CRCL calculation 103 ml/min; Estimated Glomerular Filt Rate > 60; Glucose 66 mg/dL (65-110); Sodium 132 mmol/L (137-145)
[2024-04-03] MEDS: KETOROLAC 30 MG/ML VIAL (*BKC) IV PUSH (16:51)
[2024-04-03] MEDS: SODIUM CHLORIDE 0.9% IV 2,000 ML 999 ML IV CONT (16:52)
[2024-04-03 17:05] LABS: Influenza A QL RT-PCR Positive (Negative); Influenza B QL RT-PCR Negative (Negative); RSV RNA, RT-PCR Negative (Negative); SARS-CoV-2 RNA PCR Negative (Negative)
[2024-04-03 17:58] VITALS: BP 112/83; PULSE 91; RESP 18; O2SAT 98
[2024-04-03 18:18] LABS: Add Urine Microscopic? YES; Appearance Urine Clear (Clear); Bacteria Urine None Seen /hpf; Bilirubin Urine Negative (Negative); Blood Urine Negative (Negative); Color Urine Yellow (Yellow); Glucose Urine UA 1+ mg/dL (Negative); Ketones Urine Trace mg/dL (Negative); Leukocyte Esterase Ur Negative LEU/UL (Negative); Mucus Urine Present /lpf; Need Manual Microscopic Reviewed; Nitrate Urine Negative (Negative); Protein Urine Trace mg/dL (Negative); RBC Urine 0-2 /hpf (0-2); Specific Grav Ur 1.014 (1.001-1.035); Squamous Epithelial Cell Urine None Seen /hpf (Few); Urobilinogen Urine 0.2 mg/dL (<2.0); WBC Urine 0-5 /hpf (0-3); pH Urine 5.5 (5.0-9.0)
[2024-04-03 18:20] VITALS: TEMP 36.9
== END 2024-04-03 18:21 | disposition home or self-care (01) ==
PROVIDERS: Emergency Provider Emergency Medicine; PCP Emergency Medicine
DX: J10.1 Influenza due to other identified influenza virus with other respiratory manifestations (principal); E87.1 Hypo-osmolality and hyponatremia; F17.210 Nicotine dependence, cigarettes, uncomplicated; Z20.822 Contact with and (suspected) exposure to COVID-19
CPT/HCPCS: 36415; 71045; 80053; 81001; 85025; 87637; 96361; 96374; 99284; J1885; J7030